=== PATIENT | female | born 1990 | race Caucasian/White ===

== ENCOUNTER 2018-04-23 17:30 | Outpatient (RCR) | payer OTHER, SELFPAY ==
--- NOTE | 2018-03-21 09:25 | HP.PTEVAL_ITS ---
Patient's Visit Information ABDOUL IRIZARRY is a 27 year old F referred to Physical Therapy by Tc Mckeon with a diagnosis of R knee pain, weak glutes and pes planus...trying to start running.. Date of Evaluation: 03/21/18 Physical Therapist: Toma Mcdowell - Visit Plan Frequency: 2x /Week Duration: 4-6 Weeks Plan: 2X/ week for 4-6 weeks for L hip and knee strengthening (deepthi hip abd and glutes), core strengthening and functional mechanics with HEP and modalities if needed. (possible orthtics for pes planus (R wose than L). - Subjective Subjective: It feels better now but she was having anterior R knee pain and said that it was from the way she was walking and that her hips were weak. Pt had an ACL tear on L leg. Started to train for 5K and both knees were giving her issues. She had her L knee Repaired November 2011..... It does not bother her with running. At times she feel s that with weather changes she could feel achy in the L knee and can feel it in her R knee. The pain goes away. SHe got to about 1.5 miles and that was it because she learned in therapy not to over do it. wants her to get a good pair of orthotics. - Objective B knee AROM 0-135 degrees. LE MMT: R hip abd 4-/5 and L 4/5, B hip ext 4-/5, B hip flex 4/5, B knee flexion 4+/5, B knee ext 4+/5. Slightly tight HS, tight hip flexor. OHS: Slight heel raise, flexed trunk, shifts more to the L than R - Goals Goal 1:: I HEP Goal Time Frame: 4-6 Weeks Goal 2:: Be able to start some progressive running without pain Goal Time Frame: 4-6 Weeks Goal 3:: Increase hip and glut strength to 4+/5 B Goal Time Frame: 4-6 Weeks Goal 4:: Be able to hold Plank 30 sec X 3 without substitution Goal Time Frame: 4-6 Weeks - Rehabilitation Potential Rehabilitation Potential: Good - Anticipated Interventions Patient/Client Instruction: Educate patient on: Condition, Plan of Care For the Purpose of:: To decrease pain, To decrease swelling/inflammation, To increase ROM, To improve muscle performance and motor function, To improve ability to perform ADL's, To increase tolerance to activity/condition/position, To improve performance and independence with ADL's, To improve gait and locomotor functions, To improve self management, To prevent re-injury Therapeutic Exercise to Include: Strength training, Endurance training, Active ROM, Dynamic Lumbar Stabilization For the Purpose of:: To decrease pain, To increase ROM, To improve nutrient delivery to tissue, To improve muscle performance and motor function, To improve performance and independence with ADL's, To improve health of tissue, To prevent re-injury IF ES: Yes - PRN For the Purpose of:: To decrease pain, To decrease swelling/inflammation, To improve nutrient delivery to tissue Thank you for the opportunity to evaluate your patient. For Medicare and Medicare HMO plans, please review the plan of care and approve it. It will need to be FAXED BACK to us at [phone] for Medicare purposes. Please let me know if there are questions or concerns regarding this plan of care. Physician Signature: Date:
--- NOTE | 2018-04-23 18:01 | HP.PTDCSUM ---
HP - PT D/C Summary It has been my pleasure to treat ABDOUL IRIZARRY under orders from Tc Mckeon, for the diagnosis of R knee pain, weak glutes and pes planus...trying to start running. for a total of 8 visit(s). Discharge Date: 04/23/18 Please see the following information for a summary of their discharge status. - Subjective Subjective: She is doing Clam shells, fire hydrants, bridges with band, Planks, bridges with feet on ball, HSC with bridges, Inchworms, squats.. (if she has not walked her drive the squats do bother her). She had a pop the other day kneeling to put her son in the tub... Pt knows - Objective Objective/Function: Hip abd B 4+/5 B, hip ext B 4+/5. gait: normal. Plank: 30 sec X 3 with good form. Able to SLB 30 sec X 3 B - Goals Goal 1:: I HEP Goal Progress: Goal Met Goal 2:: Be able to start some progressive running without pain Goal 3:: Increase hip and glut strength to 4+/5 B Goal Progress: Goal Met Goal 4:: Be able to hold Plank 30 sec X 3 without substitution Goal Progress: Goal Met - Plan Plan: DC PT to HEP. Issued a blue t-band for advancement of HEP. - D/C Information Discharge Comments: DC PT to HEP If there are questions or concerns regarding this patient's physical therapy, please feel free to call me at [phone]. Thank you for the referral of this patient. Sincerely, Toma Mcdowell
== END 2018-04-23 19:00 | disposition home or self-care (01) ==
LOC: PT 17:30
PROVIDERS: Family Provider Family Medicine; PCP Family Medicine; Visit Provider Family Medicine
DX: M25.561 Pain in right knee (principal); M62.81 Muscle weakness (generalized); M21.40 Flat foot [pes planus] (acquired), unspecified foot
CPT/HCPCS: 97110; 97161; 97530

== ENCOUNTER → 2018-05-20 13:53 | Outpatient (CLI) | payer OTHER, SELFPAY ==
[2018-05-20 21:29] LABS: Chlamydia Trachomatis by PCR Negative (Negative); Neisserai gonorrhoeae by PCR Negative (Negative); Probe Check PASS; Sample Adequacy Control PASS; Specimen Processing Control PASS
[2018-05-23 14:13] LABS: HPV Reflexed? NOT INDICATED
== END ==
PROVIDERS: Visit Provider Obstetrics & Gynecology
DX: Z34.81 Encounter for supervision of other normal pregnancy, first trimester (principal); Z12.4 Encounter for screening for malignant neoplasm of cervix; Z11.3 Encounter for screening for infections with a predominantly sexual mode of transmission
CPT/HCPCS: 87491; 87591; 88175; G0145

== ENCOUNTER → 2018-06-11 10:58 | Outpatient (CLI) | payer OTHER, SELFPAY ==
[2018-06-11 15:56] LABS: Color, Urine Yellow (Yellow); Glucose, Dipstick Normal (Normal); Ketone-Dipstick Negative (Negative); Leukocyte Esterase-Dipstick Negative /ul (Negative); Nitrite-Dipstick Negative (Negative); Occult Blood-Urine Negative /ul (Negative); Protein-Dipstick Negative (Negative); Urine Bilirubin Dipstick Negative (Negative); Urine Clarity Clear (Clear); Urine Urobilinogen Normal (Normal)
[2018-06-11 15:59] LABS: Absolute Lymphocyte Count 2.04 X10^3/ul (0.83-4.51); Absolute Neutrophil Count 4.7 X10^3/uL (2.0-7.7); Basophil# 0.01 X10^3/uL; Basophil% 0.1 % (0-1); Eosinophil# 0.09 X10^3/uL; Eosinophils% 1.2 % (0-5); Hematocrit 41.4 % (37-47); Hemoglobin 14.1 g/dl (12.0-15.0); Lymphocyte # 2.04 X10^3/ul (4.0); Lymphocyte % 27.9 % (19-41); Mean Corp Hgb Conc 34.1 g/gl (32-36); Mean Corpuscular Hgb 31.5 pg (27.0-32.0); Mean Corpuscular Volume 92.4 fL (81-99); Mean Platelet Vol. 10.3 fl (6.2-12.0); Monocyte# 0.45 X10^3/uL; Monocyte% 6.2 % (0-10); Neutrophil # 4.69 X10^3/uL (2.7-7.7); Neutrophil % 64.3 % (47-70); Platelet Count 264 K/mm3 (150-450); RBC Distribution Width CV 12.4 % (11.6-14.6); RBC Distribution Width SD 41.4 fl (35.1-43.9); Red Blood Count 4.48 M/mm3 (4.2-5.4); White Blood Count 7.3 K/mm3 (4.4-11.0)
[2018-06-11 16:01] LABS: POSITIVE COUNT NO; POSITIVE DIFFERENTIAL NO; POSITIVE MORPHOLOGY NO
[2018-06-11 16:10] LABS: Thyroid Stim Hormone (TSH) 1.11 uIU/mL (0.358-3.74)
[2018-06-11 16:59] LABS: HIV - WCH Non-Reactive (Nonreactive); Rubella IgG 74.8 IU/mL
[2018-06-13 02:29] LABS: Prenatal RPR NONREACTIVE (NONREACTIVE)
[2018-06-13 09:01] LABS: HEPATITIS B SURFACE AG Negative (Negative); Hep C Antibodies <0.1 s/co ratio (0.0-0.9)
== END ==
PROVIDERS: Visit Provider Obstetrics & Gynecology
DX: Z34.81 Encounter for supervision of other normal pregnancy, first trimester (principal)
CPT/HCPCS: 36415; 81002; 84443; 85025; 86703; 86762; 86803; 87340

== ENCOUNTER → 2018-10-08 08:49 | Outpatient (CLI) | payer OTHER, SELFPAY ==
[2018-08-24 08:40] VITALS: BMI 29.9
[2018-10-08 09:53] LABS: Hematocrit 38.1 % (37-47); Hemoglobin 12.6 g/dl (12.0-15.0); Mean Corp Hgb Conc 33.1 g/gl (32-36); Mean Corpuscular Hgb 31.5 pg (27.0-32.0); Mean Corpuscular Volume 95.3 fL (81-99); Mean Platelet Vol. 10.1 fl (6.2-12.0); Platelet Count 261 K/mm3 (150-450); RBC Distribution Width SD 45.3 fl (35.1-43.9); White Blood Count 9.1 K/mm3 (4.4-11.0)
[2018-10-08 09:54] LABS: Scan Indicated on CBC? Y/N YES- FLAGS NOTED
[2018-10-08 10:14] LABS: AST(SGOT) 17 U/L (15-37); Alanine Aminotransfer ALT/SGPT 17 U/L (13-56); Albumin, Serum 2.8 g/dL (3.2-5.0); Alkaline Phosphatase 133 U/L (45-117); Bilirubin, Direct 0.08 mg/dL (0.00-0.30); Globulin 3.9 g/dL (2.2-4.2); Glucose Challenge Gest 1H 50g 101 mg/dL (70-140); Protein, Total 6.7 g/dL (6.4-8.2)
== END ==
PROVIDERS: Visit Provider Obstetrics & Gynecology
DX: Z34.83 Encounter for supervision of other normal pregnancy, third trimester (principal); O26.893 Other specified pregnancy related conditions, third trimester; L29.9 Pruritus, unspecified; Z3A.00 Weeks of gestation of pregnancy not specified
CPT/HCPCS: 36415; 80076; 82950; 85027

== ENCOUNTER → 2018-11-05 10:21 | Outpatient (CLI) | payer OTHER, SELFPAY ==
[2018-08-24 08:40] VITALS: BMI 29.9
[2018-11-05 14:06] LABS: AST(SGOT) 16 U/L (15-37); Alanine Aminotransfer ALT/SGPT 15 U/L (13-56); Albumin, Serum 2.7 g/dL (3.2-5.0); Alkaline Phosphatase 164 U/L (45-117); Bilirubin, Direct 0.05 mg/dL (0.00-0.30); Globulin 3.9 g/dL (2.2-4.2); Protein, Total 6.6 g/dL (6.4-8.2)
== END ==
PROVIDERS: Visit Provider Obstetrics & Gynecology
DX: O26.619 Liver and biliary tract disorders in pregnancy, unspecified trimester (principal); K83.1 Obstruction of bile duct; Z3A.00 Weeks of gestation of pregnancy not specified
CPT/HCPCS: 36415; 80076

== ENCOUNTER → 2018-12-01 11:06 | Outpatient (CLI) | payer OTHER, SELFPAY ==
[2018-08-24 08:40] VITALS: BMI 29.9
== END ==
PROVIDERS: Visit Provider Obstetrics & Gynecology
DX: Z36.85 Encounter for antenatal screening for Streptococcus B (principal)
CPT/HCPCS: 87081

== ENCOUNTER 2018-12-12 07:05 | Inpatient (IN) | payer OTHER, SELFPAY ==
[2018-08-24 08:40] VITALS: BMI 29.9
[2018-12-12] MEDS: Lactated Ringers 1,000 ML 50 ML IV ×3 (07:35→15:32)
[2018-12-12 07:49] VITALS: BMI 33.0
[2018-12-12] MEDS: Oxytocin 30 units/NS 500 ml 30 UNITS/500 ML IV.SOLN IV (07:56)
[2018-12-12 08:10] LABS: Hematocrit 37.4 % (37-47); Hemoglobin 12.4 g/dl (12.0-15.0); Mean Corp Hgb Conc 33.2 g/gl (32-36); Mean Corpuscular Hgb 31.2 pg (27.0-32.0); Mean Platelet Vol. 10.2 fl (6.2-12.0); Platelet Count 264 K/mm3 (150-450); RBC Distribution Width CV 12.8 % (11.6-14.6); RBC Distribution Width SD 44.4 fl (35.1-43.9); Red Blood Count 3.98 M/mm3 (4.2-5.4); White Blood Count 9.1 K/mm3 (4.4-11.0)
[2018-12-12 08:14] LABS: Scan Indicated on CBC? Y/N NO
[2018-12-12] MEDS: fentaNYL-bupivacaine (epidural) 100 ML BAG EPIDURAL ×2 (11:35→15:30)
[2018-12-12] MEDS: Ondansetron 4 MG/2 ML Vial IV (11:55)
--- NOTE | 2018-12-12 12:51 | PCM.PN.BLA ---
Progress Note LABOR PROGRESS NOTE 37 wk induction, cholestasis of . Epidural placed and comfortable. Some nausea and lower BPs with epidural AVSS Pitocin at 10 mIU/min EFM 130-140s avg variability. Accels. UCs q 2- 3 mins CX: 3/75/-2 vtx. A/P: 37 wk induction Cholestasis of Epidural placed. Adequate progress, prodromal labor. Shah to be placed. Continue induction. Anticipate .
[2018-12-12] MEDS: Oxytocin 30 units/NS 500 ml 30 UNITS/500 ML IV.SOLN 334 UNITS IV (16:42)
--- NOTE | 2018-12-12 16:46 | DCINST_ITS ---
Discharge Diet: No Restrictions Discharge Activity: May Shower, May Take a Tub Bath May resume sexual activity in: 4-6 weeks Additional Activity Instructions:: Nothing in the vagina for 4-6 weeks. You may return to work/school in 6 weeks. Additional Instructions: If you experience any of the following, contact your healthcare provider. * Bleeding that soaks a pad every hour for 2 hours * Fever 100.4 or higher * Unrelieved abdominal pain * Problems urinating (including inability to urinate or burning while urinating). * Visual changes * Severe headache * Flu-like symptoms * Pain or redness in one of both of your breasts * Pain, warmth, tenderness or swelling in your legs, especially the calf area * Frequent nausea and vomiting * Symptoms of depression or anxiety If you experience any of the following, call 911 or go to the nearest Emergency Room. * Chest pain * Problems breathing * Seizure activity * Partial or complete paralysis of a body part, slurred speech, weakness or drooping of the face, or a sudden inability to walk or hold your balance Allergies/Adverse Reactions: Allergies No Known Allergies Allergy (Verified 08/24/18 08:44) Medications to take at Discharge acetaminophen 325 mg capsule 325 mg PO Q6H PRN 08/24/18 Hydroxyzine HCl 50 mg PO Q6H PRN PRN 12/12/18 Vits [Prenatabs FA] 1 tablet PO DAILY 12/12/18 Ursodiol 300 mg PO TID 12/12/18 Please Follow Up With: Mary Beth Hunter MD - [phone] When: Call to make an appointment with your doctor in 6 weeks. Primary Care Physician: Calos Mckeon MD [Primary Care Provider] - Test Results: Test results from this visit will be discussed in further detail at your follow- up appointment, if applicable. Proposed Discharge Date: 12/14/18
--- NOTE | 2018-12-12 16:46 | PCM.DCVAG ---
Discharge Diet: No Restrictions Discharge Activity: May Shower, May Take a Tub Bath May resume sexual activity in: 4-6 weeks Additional Activity Instructions:: Nothing in the vagina for 4-6 weeks. You may return to work/school in 6 weeks. Additional Instructions: If you experience any of the following, contact your healthcare provider. Bleeding that soaks a pad every hour for 2 hours Fever 100.4 or higher Unrelieved abdominal pain Problems urinating (including inability to urinate or burning while urinating). Visual changes Severe headache Flu-like symptoms Pain or redness in one of both of your breasts Pain, warmth, tenderness or swelling in your legs, especially the calf area Frequent nausea and vomiting Symptoms of depression or anxiety If you experience any of the following, call 911 or go to the nearest Emergency Room. Chest pain Problems breathing Seizure activity Partial or complete paralysis of a body part, slurred speech, weakness or drooping of the face, or a sudden inability to walk or hold your balance Allergies/Adverse Reactions: Allergies No Known Allergies Allergy (Verified 08/24/18 08:44) Medications to take at Discharge acetaminophen 325 mg capsule 325 mg PO Q6H PRN 08/24/18 Hydroxyzine HCl 50 mg PO Q6H PRN PRN 12/12/18 Vits [Prenatabs FA] 1 tablet PO DAILY 12/12/18 Ursodiol 300 mg PO TID 12/12/18 Please Follow Up With: Mary Beth Hunter MD - [phone] When: Call to make an appointment with your doctor in 6 weeks. Primary Care Physician: Calos Mckeon MD [Primary Care Provider] - Test Results: Test results from this visit will be discussed in further detail at your follow-up appointment, if applicable. Proposed Discharge Date: 12/14/18
--- NOTE | 2018-12-12 16:46 | PCM.OB.VAG ---
Vaginal Delivery Maternal Presentation: Medically Indicated Induction 37 wk cholestasis of , induction Method of Induction: Pitocin, Amniotomy Amniotic Membrane Rupture Type: Artificial Amniotic Fluid Description: Lightly stained meconium Final MANDY: 01/02/19 Final MANDY Source: US <20 weeks Gestational age: 37 Weeks and 2 Days doctor who attended delivery (if requested by OB): Nini Rashid meconium stained fluid Date of Procedure: 12/12/18 Pre-Operative Diagnosis: 37 wk induction, cholestasis of Post-Operative Diagnosis: same Surgery/ Procedure Performed: Spontaneous Vaginal Delivery Type of Anesthesia: Epidural Description of Procedure: of a sharma viable male over intact perineum Head delivered with two pushes. No nuchal cord. Shoulders delivered easily. Infant to maternal abdomen with spontaneous vigorous cry. Peds present for delivery due to light meconium stained fluid. No cord blood collected other than for blood type. PP exam 1st deg vaginal / perineal laceration repaired under epidural to hemostatic and intact with 3-0 Vicryl. No other lacerations Placenta delivered by spontaneous expulsion, expression 3V normal appearing and intact with trailing membranes. EBL 350 cc Pt and tolerated delivery well. To recovery, stable condition. [place] and needle counts correct. Presentation: Vertex, ERA Placental Delivery Description: Spontaneous, Expressed Placenta Disposition: [facility] Cord Vessel Description: 3 Vessels Cord Entanglement: None Drain: Shah to straight drain Estimated Blood Loss: 350 Infant A gender: Male (1 minute): 8 (5 minute): 9 Episiotomy Description: None Laceration: Midline, Perineal Extension/lac, 1st degree Medications given after delivery: IV Pitocin Complications: None
[2018-12-12] MEDS: Oxytocin 30 units/NS 500 ml 30 UNITS/500 ML IV.SOLN 167 UNITS IV (17:12)
[2018-12-12] MEDS: 0.9% Saline Lock 10 ML Syringe IV (18:15)
[2018-12-12 20:51] VITALS: BP 109/59; PULSE 84; RESP 16; TEMP 36.9; O2SAT 100
[2018-12-12] MEDS: Ibuprofen 600 MG Tablet PO (22:47)
[2018-12-12 23:05] VITALS: BP 100/39; PULSE 80; RESP 16; TEMP 36.8; O2SAT 98
[2018-12-13 03:48] VITALS: BP 103/61; PULSE 74; RESP 18; TEMP 36.4; O2SAT 96
[2018-12-13] MEDS: Acetaminophen 500 MG Tablet 1000 MG PO ×2 (03:53→18:34)
[2018-12-13 08:20] VITALS: BP 107/68; PULSE 70; RESP 16; TEMP 36.4; O2SAT 99
--- NOTE | 2018-12-13 09:08 | PCM.PN.OB ---
Subjective: No specific complaints. Breast feeding. Bleeding light Objective: Afeb VSS - Physical Exam General: Alert, Oriented x3, Cooperative, No apparent distress Lungs: Clear to auscultation, Normal air movement Cardiovascular: Regular rate, Regular Rhythm Abdomen: Soft, Non Tender, Non-Distended Extremities: No edema Skin: No rashes Neurological: Neuro grossly intact Psych/Mental Status: Normal Affect Comment: Lochia appropriate Vital Signs Temp Pulse Resp BP Pulse Ox 97.5 F L 70 16 107/68 99 12/13/18 08:20 12/13/18 08:20 12/13/18 08:20 12/13/18 08:20 12/13/18 08:20 Oxygen Delivery Method Room Air Weight: 210 lb 15.718 oz Body Mass Index (BMI) 33.0 Intake and Output for Last 24 Hours 12/11/18 12/12/18 12/13/18 23:59 23:59 23:59 Intake Total 3273 / 3273 Output Total 4200 / 4200 400 / 400 Balance -927 / -927 -400 / -400 Laboratory Tests Past 24 Hrs 12/12/18 07:35 Blood Type O POSITIVE Antibody Screen NEGATIVE Medical Necessity - Tobacco Use Smoking Status: Never smoker Assessment/Plan Doing well on PP day#1 s/p . Would like early discharge if baby able to be discharged later today. Home going instructions and warnings given.
--- NOTE | 2018-12-13 09:12 | DS.PCM_ITS ---
Discharge Date and Diagnosis Date of Admission: 12/12/18 Date of Discharge: 12/13/18 - Primary Discharge Diagnosis s/p Hospital Course and Treatment Operations: None Procedures: - - Pitocin induction of labor. Summary of Care Provided: The patient is a 28 year old F [admitted for induction of labor secondary to cholestasis of . Induction was uncomplicated and resulted in un complicated vaginal delivery. Post course was unremarkable. She was discharged home on PP day#1.] - Physical Exam Vital Signs Temp Pulse Resp BP Pulse Ox 97.5 F L 70 16 107/68 99 12/13/18 08:20 12/13/18 08:20 12/13/18 08:20 12/13/18 08:20 12/13/18 08:20 Oxygen Delivery Method Room Air Weight: 210 lb 15.718 oz Body Mass Index (BMI) 33.0 Intake and Output for Last 24 Hours 12/11/18 12/12/18 12/13/18 23:59 23:59 23:59 Intake Total 3273 / 3273 Output Total 4200 / 4200 400 / 400 Balance -927 / -927 -400 / -400 Laboratory Tests Past 24 Hrs 12/12/18 07:35 Blood Type O POSITIVE Antibody Screen NEGATIVE Discharge Diet: No Restrictions Discharge Activity: May Shower, May Take a Tub Bath May resume sexual activity in: 4-6 weeks Additional Activity Instructions:: Nothing in the vagina for 4-6 weeks. You may return to work/school in 6 weeks. Call your doctor if your incision/area has: Sudden Increased Bleeding, Increased Pain/ Swelling, Foul Smelling Discharge Call your doctor if you observe: Fever of 101 or Higher, Inability to urinate, Inability to have a bowel movement, Using more than one pad per hour, Shortness of breath, Chest pain, Calf discomfort, Uncontrolled pain Home Medications: Medications to take at Discharge acetaminophen 325 mg capsule 325 mg PO Q6H PRN 08/24/18 Hydroxyzine HCl 50 mg PO Q6H PRN PRN 12/12/18 Vits [Prenatabs FA] 1 tablet PO DAILY 12/12/18 Ursodiol 300 mg PO TID 12/12/18 Primary Care Physician: Calos Mckeon MD [Primary Care Provider] - Please Follow Up With: Mary Beth Hunter MD - [phone] When: 6 weeks Disposition: Home Minutes spent on discharge:: 15 Patient Condition:: Good Medical Necessity - Tobacco Use Smoking Status: Never smoker Meaningful Use Info Meaningful Use Diagnoses (Choose all that apply): None applicable
[2018-12-13] MEDS: Ibuprofen 600 MG Tablet PO (10:34)
[2018-12-13] MEDS: Senna/Docusate Sodium 1 Tablet PO (10:34)
--- NOTE | 2018-12-13 11:56 | CASEMGMT ---
See Social Work Assessment for more details. SW met with mother and father of baby. Introduced self and role at [facility]. Both were very open to talking with SW and thanked SW for stopping by. Confirmed address and phone numbers. patient explained that after the first baby she was super anxious. She said there were a lot of different factors. She and father of baby have learned a lot. They feel much more prepared this time. She actually prepared several meals and put in the freezer. She said last night they were so tired and it was very helpful the nursery took care of baby so they could get a little sleep. She said once she got some sleep she feels like a different person. There is no history of alcohol or drug abuse. Father of baby has no history of mental health issues. patient will have help for the next 2 weeks. Her mom and then her best friend. Both mother and father of baby were upbeat and happy about baby. Patient said she didn't speak up before about her Anxiety, because she initially did not recognize what it was and she also felt like it meant she was weak. She said she knows better now. SW encouraged her to speak up and it in no way indicates she is weak. Mother and father of baby spoke highly of one another the whole time. They seemed to have a good understanding of one another. They expressed no concerns with going home with baby. FADIA updated RN Plan: d/c home with baby.
[2018-12-13 13:00] VITALS: BP 106/56; PULSE 89; RESP 16; TEMP 36.6; O2SAT 98
[2018-12-13 17:10] VITALS: BP 115/62; PULSE 85; RESP 14; TEMP 37.1; O2SAT 98
[2018-12-13 19:45] VITALS: BP 113/59; PULSE 74; RESP 18; TEMP 36.9
== END 2018-12-13 21:05 | disposition home or self-care (01) | DRG 805 ==
PROVIDERS: Admitting Provider Obstetrics & Gynecology; Family Provider Family Medicine; PCP Family Medicine; Referring Provider Obstetrics & Gynecology; Visit Provider Obstetrics & Gynecology
DX: O26.62 Liver and biliary tract disorders in childbirth (principal); K83.1 Obstruction of bile duct; Z37.0 Single live birth; O77.0 Labor and delivery complicated by meconium in amniotic fluid; O70.0 First degree perineal laceration during delivery; Z3A.37 37 weeks gestation of pregnancy
CPT/HCPCS: 59050; 85027; 86850; 86900; 99218; J7120; A4216; G0378; J2405

== ENCOUNTER → 2019-09-10 17:22 | Outpatient (CLI) | payer OTHER, SELFPAY ==
--- NOTE | 2019-09-10 17:24 | RAD_ITS ---
STUDY: X-RAY CHEST REASON FOR EXAM: Female, 28 years old. Left upper chest pain TECHNIQUE: Frontal and lateral views COMPARISON: None. FINDINGS: The lungs are expanded. There is a left apical focal opacity. Normal size heart. Normal mediastinum and kal. Normal visualized pulmonary arteries. Normal visualized aortic arch and descending thoracic aorta. Normal visualized thoracic spine. Normal visualized ribs, clavicles, and shoulders. There is no demonstrated abnormality of the visualized soft tissue structures of the upper abdomen. RAD/Chest PA and Lateral IMPRESSION: There is a left apical focal opacity possibly an infiltrate. Follow-up is needed. Electronically Signed: Usman Van DO at 23:57 EST Tel [phone], Service support ,
== END ==
PROVIDERS: Family Provider Family Medicine; PCP Family Medicine; Referring Provider Family Medicine; Visit Provider Family Medicine
DX: R09.1 Pleurisy (principal)
CPT/HCPCS: 71046

== ENCOUNTER 2019-12-06 18:35 | Emergency (ER) | payer OTHER, SELFPAY ==
[2019-12-06 18:36] VITALS: BP 131/77; PULSE 71; RESP 19; TEMP 36.7; O2SAT 100; BMI 29.4
--- NOTE | 2019-12-06 19:03 | CT_ITS ---
STUDY: CTA OF THE BRAIN REASON FOR EXAM: Female, 29 years old. Headache X 2 WEEKS. Not -pt shielded RADIATION DOSAGE (If Supplied By Facility): CTDIvol = ( 25.90 ) mGy, DLP = ( 1168.74 ) mGycm TECHNIQUE: CT angiography was performed with a multi-detector CT scanner. Data acquisition was obtained from the skull base through the vertex following intravenous administration of IV 100mL [id number]-300. MIP images were reconstructed from the axial data set. Post-processing of the angiographic images was performed, with multiplanar reformation and 3D reconstruction. Individualized dose optimization techniques were used for this CT. COMPARISON: None. FINDINGS: Normal bilateral petrous carotid arteries. Normal right cavernous carotid artery with a normal supraclinoid bifurcation. Normal left cavernous carotid artery with a normal supraclinoid bifurcation. Normal right A1 segments of the anterior cerebral artery. Normal left A1 segments of the anterior cerebral artery. Normal intact anterior communicating artery (ACOM). Normal bilateral A2 segments of the anterior cerebral arteries. Normal right M1 and M2 segments of the middle cerebral arteries, with a normal M1 bifurcation. Normal left M1 and M2 segments of the middle cerebral arteries, with a normal M1 bifurcation. Normal right posterior communicating artery (PCOM). Normal left posterior communicating artery (PCOM). Normal bilateral vertebral arteries. Normal basilar artery with a normal basilar bifurcation. The visualized bilateral superior cerebellar (SCA) arteries are normal. Normal bilateral P1, P2 and visualized P3 segments of the posterior cerebral arteries. There is no demonstrated aneurysm of the [place] of [place]. There is no demonstrated abnormality of the visualized brain. CT/CTA Head W/WO Contrast IMPRESSION: Normal [place] of [place] without a demonstrated aneurysm or hemodynamically significant stenosis. Electronically Signed: Roman Shah MD at 20:45 EDT , Service support ,
[2019-12-06] MEDS: 0.9% Normal Saline 1,000 ML 999 ML IV (19:19)
[2019-12-06] MEDS: Ketorolac 30 MG/ML Syringe IV (19:19)
[2019-12-06] MEDS: Metoclopramide 10 MG/2 ML Vial IV (19:20)
[2019-12-06] MEDS: DiphenhydrAMINE 50 MG/ML Syringe IV (19:21)
[2019-12-06 19:46] LABS: Absolute Lymphocyte Count 2.56 X10^3/uL (0.83-4.51); Absolute Neutrophil Count 3.1 X10^3/uL (2.0-7.7); Basophil# 0.04 X10^3/uL; Basophil% 0.6 % (0-1); Eosinophil# 0.13 X10^3/uL; Hematocrit 41.8 % (37-47); Lymphocyte # 2.56 X10^3/ul (4.0); Lymphocyte % 40.1 % (19-41); Mean Corp Hgb Conc 33.5 g/dL (32-36); Mean Corpuscular Hgb 30.6 pg (27.0-32.0); Mean Corpuscular Volume 91.5 fL (81-99); Mean Platelet Vol. 10.2 fl (6.2-12.0); Monocyte# 0.57 X10^3/uL; Monocyte% 8.9 % (0-10); NRBC Flagged by Analyzer 0 % (0-5); Neutrophil # 3.08 X10^3/uL (2.7-7.7); Neutrophil % 48.2 % (47-70); Platelet Count 250 K/mm3 (150-450); RBC Distribution Width CV 12.1 % (11.6-14.6); RBC Distribution Width SD 40.6 fl (35.1-43.9); Red Blood Count 4.57 M/mm3 (4.2-5.4); White Blood Count 6.4 K/mm3 (4.4-11.0)
[2019-12-06 19:49] LABS: Anion Gap 7 (5-15); BUN 11 mg/dL (7-18); BUN/Creat Ratio 18.6 RATIO (10-20); Calcium,Total 8.9 mg/dL (8.5-10.1); Chloride 110 mmol/L (98-107); Creatinine, Serum 0.59 mg/dL (0.55-1.02); EST Glomerular Filtration Rate 129 mL/min (>60); Est Glom Filt Rate - Afr Amer 156 mL/min (>60); Estimated Creatinine Clearance 132.89 ml/min; Glucose 92 mg/dL (74-106); Potassium 3.9 mmol/L (3.5-5.1); Sodium Level 142 mmol/L (136-145)
[2019-12-06 19:50] LABS: Internal QC Validated? YES +Cl - CLEAR BKGD; Pregnancy, Serum, hCG Quali. NEGATIVE Negative
--- NOTE | 2019-12-06 21:08 | ED.DCSUM_ITS ---
- ER Visit Summary Date of Service: 12/06/19 Chief Complaint: Headache History of Present Illness: The patient is a [address] Gilbert. She reports that she is had a continuous headache for the past 2 weeks. However, the nature of this seems to change. The location of this also seems to change. She is states at times it feels like a sinus headache that is throbbing. Other times it feels like a tension headache that is sharp. Other times it feels like a diffuse headache that is dull. This is similar to a headache that she had back in 2019. Patient reports that at worst the headaches 9-10 in severity. Currently is 2 out of 10 severity. Is worsened by movement and relieved by sleep. There is no associated nausea or vomiting. She denies any aura or visual changes. No photophobia. No recent injury to her head. No fever or chills. No numbness or weakness. On review of systems is negative. Physical Examination: Vitals: Stable. Afebrile. General: Well-nourished and well-developed. Head: Normocephalic atraumatic. Neck: Supple, no lymphadenopathy. No JVD. Nontender. Cardiovascular: Regular rate and rhythm. No murmurs. Respiratory: No respiratory distress. Clear to auscultation bilaterally. Abdominal: Soft, nontender, nondistended, normal bowel sounds. No guarding, rebound, or peritoneal signs. Back: Nontender. Extremities: Nontender, no edema. Skin: Normal color, no rash. Neurologic: Alert and oriented ?3. Cranial nerves II through XII are intact. Normal strength and sensation. Psych: Normal affect. Test Results: CBC is normal. Chem-7 is more for chloride of 110. test is negative. Clinical Impression(s) from Imaging Studies Head CTA 12/06/19 19:03 IMPRESSION: Normal [place] of [place] without a demonstrated aneurysm or hemodynamically significant stenosis. Electronically Signed: Roman Shah MD at 20:45 EDT , Service support , Emergency Department Course and Treatment: Patient does have a family history of cerebral aneurysms. Because of this a CT of the head was obtained which was unremarkable. She was given Toradol, Reglan, and Benadryl IV and is resting comfortably. Treatment Plan: Patient be discharged instructions follow-up with Dr. Gilbert 1 to 2 days if not improving. She is instructed on symptomatic care. Return to the emergency department for any worsening symptoms. Disposition: To home in improved and stable condition. Impression: 1. Cephalgia. This note was generated with [employer] dictation software. It may contain incorrect words, spelling, and punctuation that were not noted in review of the chart prior to signing ED Disposition - Plan for ED Patient: Disposition: Home or Assisted Living Instructions: HEADACHE, Unspecified Referrals: Calos Mckeon MD [Primary Care Provider] - 1-2 Days if not improving
== END 2019-12-06 21:35 | disposition home or self-care (01) ==
LOC: ED 19:54
PROVIDERS: Emergency Provider Emergency Medicine; PCP Family Medicine
DX: R51 Headache (principal); Z82.49 Family history of ischemic heart disease and other diseases of the circulatory system
CPT/HCPCS: 70496; 80048; 84703; 85025; 96361; 96374; 96375; 99284; J7030; Q9967; A4216